=== PATIENT | female | born 1935 | race Caucasian/White ===

== ENCOUNTER → 2017-05-05 | Outpatient (CLI) | payer OTHER ==
[~2017-05-05] MED LIST: ALTACE10 MG PO; ASPIRIN EC325 M1 PO; CALCIUM 600 +1 EAC1 PO; CRESTOR10 MG PO; EFFIENT10 MG PO; FISH OIL 1,001000 M2 PO; HYDROCHLOROTHIA25 M2 PO; IMDUR 60 MG TAB60 M1 PO; LEVOTHYROXINE 0.1 MG PO; MULTI VITAMIN1 EACH PO; NORVASC2.5 MG PO; PROTONIX40 M1 PO; TOPROL XL25 MG PO
== END ==
LOC: RAD 14:58
DX: M19.011 Primary osteoarthritis, right shoulder (principal)

== ENCOUNTER → 2018-12-28 | Outpatient (CLI) | payer OTHER, MEDICARE | LOC: RAD 12:23 | DX: M19.011 Primary osteoarthritis, right shoulder (principal) ==

== ENCOUNTER → 2019-11-24 | Outpatient (CLI) | payer OTHER | LOC: SJCVCIMAG 09:35 | DX: I65.23 Occlusion and stenosis of bilateral carotid arteries (principal); I08.0 Rheumatic disorders of both mitral and aortic valves; I10 Essential (primary) hypertension; I25.10 Atherosclerotic heart disease of native coronary artery without angina pectoris; I25.2 Old myocardial infarction; Z95.5 Presence of coronary angioplasty implant and graft; Z87.891 Personal history of nicotine dependence ==

== ENCOUNTER → 2020-07-22 | Outpatient (CLI) | payer OTHER | LOC: SJCVCIMAG 13:09 → SJCVC 13:09 | PROVIDERS: ATTEND Internal Medicine Cardiovascular Disease | DX: I65.23 Occlusion and stenosis of bilateral carotid arteries (principal); R94.31 Abnormal electrocardiogram [ECG] [EKG]; I45.10 Unspecified right bundle-branch block; I25.10 Atherosclerotic heart disease of native coronary artery without angina pectoris; I71.4 Abdominal aortic aneurysm, without rupture; I10 Essential (primary) hypertension; E78.00 Pure hypercholesterolemia, unspecified; I70.1 Atherosclerosis of renal artery; Z79.899 Other long term (current) drug therapy; Z87.891 Personal history of nicotine dependence ==